=== PATIENT | male | born 1935 | race Caucasian/White ===

== ENCOUNTER → 2016-06-26 | Outpatient (REF) | payer MEDICARE ==
[2016-06-26 12:20] LABS: MEAN CORPUSCULAR HEMOGLOBIN 30.5 pg (27.0-33.0); MEAN CORPUSCULAR HGB CONC 33.5 g/dl (32.0-36.5); MEAN CORPUSCULAR VOLUME 90.8 fl (80.0-96.0); RED CELL DISTRIBUTION WIDTH 13.2 % (11.5-14.5); WHITE BLOOD COUNT 4.1 K/mm3 (4.0-10.0)
[2016-06-26 12:35] LABS: ALBUMIN 3.7 GM/DL (3.2-5.2); ALBUMIN/GLOBULIN RATIO 1.23 (1.00-1.93); ALKALINE PHOSPHATASE 54 U/L (45-117); ALT/SGPT 28 U/L (12-78); ANION GAP 8 MEQ/L (8-16); AST/SGOT 25 U/L (15-37); BILIRUBIN,TOTAL 0.6 MG/DL (0.2-1.0); BLOOD UREA NITROGEN 16 MG/DL (7-18); CARBON DIOXIDE LEVEL 31 MEQ/L (21-32); CHLORIDE LEVEL 104 MEQ/L (98-107); CHOLESTEROL LEVEL 134 MG/DL (<200); CREATININE FOR GFR 0.88 MG/DL (0.70-1.30); GLOMERULAR FILTRATION RATE > 60.0 (>42); GLUCOSE, FASTING 95 MG/DL (83-110); POTASSIUM SERUM 4.5 MEQ/L (3.5-5.1); SODIUM LEVEL 143 MEQ/L (136-145); TOTAL PROTEIN 6.7 GM/DL (6.4-8.2); TRIGLYCERIDES LEVEL 107 MG/DL (<150)
== END ==
LOC: M SFHCPLAZ 07:40
PROVIDERS: ATTEND Internal Medicine
DX: D69.6 Thrombocytopenia, unspecified (principal); I10 Essential (primary) hypertension; E11.9 Type 2 diabetes mellitus without complications; E78.00 Pure hypercholesterolemia, unspecified

== ENCOUNTER → 2016-09-27 | Outpatient (CLI) | payer MEDICARE ==
[~2016-09-27] MED LIST: AMLO5TAB2 PO; ASPI1TAB24 PO; FISH1000 PO; GLUC1CAP10 PO; LISI20TA PO; METO50TA2 PO; MULT1TAB10 PO; SIMV20TA2 PO
[2016-09-27 10:40] LABS: MEAN CORPUSCULAR HEMOGLOBIN 30.3 pg (27.0-33.0); MEAN CORPUSCULAR HGB CONC 33.9 g/dl (32.0-36.5); MEAN CORPUSCULAR VOLUME 89.3 fl (80.0-96.0); RED CELL DISTRIBUTION WIDTH 13.8 % (11.5-14.5); WHITE BLOOD COUNT 7.1 K/mm3 (4.0-10.0)
[2016-09-27 10:47] LABS: INR 1.03
[2016-09-27 11:02] LABS: ALBUMIN 4.1 GM/DL (3.2-5.2); ALBUMIN/GLOBULIN RATIO 1.21 (1.00-1.93); ALKALINE PHOSPHATASE 53 U/L (45-117); ALT/SGPT 29 U/L (12-78); ANION GAP 3 MEQ/L (8-16); AST/SGOT 25 U/L (15-37); BILIRUBIN,TOTAL 0.7 MG/DL (0.2-1.0); BLOOD UREA NITROGEN 22 MG/DL (7-18); CALCIUM LEVEL 9.4 MG/DL (8.8-10.2); CARBON DIOXIDE LEVEL 35 MEQ/L (21-32); CHLORIDE LEVEL 100 MEQ/L (98-107); CREATININE FOR GFR 0.86 MG/DL (0.70-1.30); GLOMERULAR FILTRATION RATE > 60.0 (>42); GLUCOSE, FASTING 87 MG/DL (83-110); POTASSIUM SERUM 4.3 MEQ/L (3.5-5.1); SODIUM LEVEL 138 MEQ/L (136-145); TOTAL PROTEIN 7.5 GM/DL (6.4-8.2)
--- NOTE | 2016-09-27 15:01 | REP ---
Chest x-ray: Two views. History: Fever and cough. Comparison study: August 03, 2001. Findings: The lungs are symmetrically aerated and free of infiltrate. The pleural angles are sharp. Heart is not felt to be enlarged. The aorta is calcific and tortuous. There are old displaced rib fractures along the left lateral chest wall unchanged from the 2001 prior study. There are some degenerative changes in the thoracic spine. No other significant bony abnormality is seen. Impression: No active disease. Signed by Lee Sher MD 09/27/2016 03:13 P
--- NOTE | 2016-09-28 12:53 | ECGEPIP ---
Stationary ECG Study [facility] Test Date: 2016-09-27 Pat Name: NORMA LINTON Department: Room: - Gender: M Athletics Teacher: TESHA : 1935 Requested By: Mike Kang Order Number: [id number] Reading MD: Jayro Capellan Measurements Intervals [place] Rate: 50 P: 34 [place]: 146 QRS: -5 QRSD: 79 T: 15 QT: 438 QTc: 401 Interpretive Statements SINUS BRADYCARDIA No prior ECG available for comparison at the time of interpretation. Electronically Signed On 09-28-2016 12:53:07 EDT by Jayro Capellan
== END ==
LOC: M ADMPAT 08:51
PROVIDERS: ATTEND Orthopaedic Surgery
DX: Z01.818 Encounter for other preprocedural examination (principal); M25.561 Pain in right knee; I10 Essential (primary) hypertension; Z79.899 Other long term (current) drug therapy

== ENCOUNTER 2016-10-11 05:37 | Inpatient (IN) | payer MEDICARE ==
[2016-09-27 09:25] VITALS: BP 134/68
--- NOTE | 2016-10-07 18:08 | HPE ---
DATE OF ADMISSION: 10/11/2016 CHIEF COMPLAINT: Right knee pain. HISTORY OF PRESENT ILLNESS: This is a pleasant 80-year-old male with progressively worsening right knee pain and stiffness. He has failed to improve with conservative treatment. He has elected for surgery for his continued symptoms. He has pain with weightbearing activities and his activities of daily living. X-rays of his knee are notable for advanced osteoarthritis of the right knee joint. He has consented for a right total knee arthroplasty by Dr. Mike Kang. Medical optimization was performed by Dr. Bellamy. ALLERGIES: None. CURRENT MEDICATIONS: - amlodipine 10 mg half a tablet every day - aspirin 81 mg once a day - Burp-Less fish oil tablets 1200 mg two by mouth every day - glucosamine and chondroitin collagen 250/200/116.67 mg - lisinopril/hydrochlorothiazide (HCTZ) 20/12.5 mg once a day - Claritin 10 mg a day - metoprolol succinate ER 50 mg two by mouth every day - multivitamin for a 50+ adults once a day - simvastatin 20 mg one at bedtime PAST MEDICAL HISTORY: Includes: 1. Hypertension. 2. High cholesterol. SOCIAL HISTORY: This gentleman is retired. He does not smoke. Occasionally drinks alcohol. FAMILY HISTORY: Noncontributory. REVIEW OF SYSTEMS: This patient denies chest pain, heart palpitations, cough, wheezing, difficulty breathing and shortness of breath. He denies abdominal pain, nausea, vomiting, diarrhea or constipation. He denies recent upper respiratory infection or urinary tract infection symptoms. He does complain of persistent pain in his right knee and pain with weightbearing activities in his right knee. PHYSICAL EXAMINATION: GENERAL: He is a well-nourished, well-developed, in no acute distress, adult male patient. He walks with a moderate limp favoring his right lower extremity. He is not using assistive devices. VITAL SIGNS: He is 68-1/2 inches tall, weighs 222 pounds with a temperature of 96.9, blood pressure 116/70, pulse of 60 and respirations of 18. NECK: Supple without adenopathy or jugular venous distension. There were no carotid bruits appreciated upon auscultation. LUNGS: Clear to auscultation without rales or wheeze throughout. HEART: Regular rate and rhythm. ABDOMEN: Bowel sounds were present. EXTREMITIES: Examination of the knee revealed intact skin. He had decreased range of motion secondary to pain and stiffness. The leg is neurovascularly intact. LABORATORY DATA: Chest x-ray showed no acute cardiopulmonary disease processes. EKG showed sinus bradycardia at 50 beats per minute. Nasal and sinus culture showed normal naida. ProTime was 13.6. INR 1.03. Glucose 87, BUN 22, creatinine 0.86, sodium 138, potassium 4.3. Complete blood count (CBC) showed a hematocrit of 41.9, otherwise within normal limits. Sedimentation rate was 6. Urinalysis (UA) was within normal limits with a specific gravity of 1.021. Urine culture showed no growth. IMPRESSION: Symptomatic osteoarthritis of the right knee joint. PLAN Consented for a right total knee arthroplasty by Dr. Mike Kang.
[~2016-10-11] VITALS: Ht 177.8 cm; Wt 98.0 kg
[2016-10-11] VITALS (7 sets, daily range): BP systolic 130–168; BP diastolic 67–77
[2016-10-11] MEDS ORDERED: LR 1,000 ML IV SCH ×2 (05:45→09:45)
[2016-10-11] MEDS ORDERED: fentaNYL 100 MCG/2 ML INJECTION (J3010) As Ordered ONE ×3 (06:42→08:02)
[2016-10-11] MEDS ORDERED: MIDAZOLAM INJ 2 MG/2 ML VIAL (J2250) As Ordered ONE ×2 (06:42→07:49)
[2016-10-11] MEDS ORDERED: TRANEXAMIC ACID 100 MG/ML 10ML VIAL As Ordered ONE (07:01)
[2016-10-11] MEDS ORDERED: ceFAZolin 1GM INJ (J0690) As Ordered ONE (07:02)
[2016-10-11] MEDS ORDERED: EPINEPHrine INJ 1 MG/ML 1ML VIAL/AMP As Ordered ONE (07:02)
[2016-10-11] MEDS ORDERED: BUPIVACAINE HCL 0.25% 30 ML VIAL As Ordered ONE (07:02)
[2016-10-11] MEDS ORDERED: LIDOCAINE 2% INJ 100 MG/5 ML SDV (FOR ANES.) As Ordered ONE (07:49)
[2016-10-11] MEDS ORDERED: PROPOFOL 200 MG/20 ML VIAL As Ordered ONE (07:49)
[2016-10-11] MEDS: fentaNYL 100 MCG/2 ML INJECTION (J3010) IV SCH ×2 (08:08→08:12)
[2016-10-11] MEDS: MIDAZOLAM INJ 2 MG/2 ML VIAL (J2250) IV SCH ×2 (08:11→08:12)
[2016-10-11] MEDS: ASPIRIN 81 MG ENTERIC TAB PO SCH (09:00)
[2016-10-11] MEDS: amLODIPine 5 MG TAB PO SCH (09:00)
[2016-10-11] MEDS: MULTIVITAMINS/MINERALS THERAP 1 TAB PO SCH (09:00)
[2016-10-11] MEDS: OMEGA-3 1050MG CAPSULE PO SCH (09:00)
[2016-10-11] MEDS ORDERED: MORPHINE PCA 1MG/ML 100ML CADD As Ordered ONE (09:41)
[2016-10-11] MEDS ORDERED: fentaNYL 100 MCG/2 ML INJECTION (J3010) IV PRN (09:45)
[2016-10-11] MEDS ORDERED: MORPHINE 2 MG/ML 1ML SYRINGE IV PRN (09:45)
[2016-10-11] MEDS ORDERED: ONDANSETRON 4MG/2ML VIAL (J2405) IV PRN ×3 (09:45→10:00)
[2016-10-11] MEDS ORDERED: EPIDURAL/PCA KEYS XX PRN (10:00)
[2016-10-11] MEDS ORDERED: FLEET ENEMA PR PRN (10:00)
[2016-10-11] MEDS ORDERED: diphenhydrAMINE INJ 50MG/ML VIAL (J1200) IV PRN (10:00)
[2016-10-11] MEDS ORDERED: PATIENT IS CURRENTLY ON AN ON-Q PAIN BUSTER PAIN RELIEF SYSTEM XX SCH (10:00)
[2016-10-11] MEDS ORDERED: ACETAMINOPHEN TAB 650MG DOSE (2X325MG) PO PRN (10:00)
[2016-10-11] MEDS ORDERED: NALOXONE INJ 0.4 MG/1 ML VIAL (J2310) IV PRN (10:00)
[2016-10-11] MEDS ORDERED: NALBUPHINE HCL 10 MG/ML AMP (J2300) IV PRN (10:00)
[2016-10-11] MEDS ORDERED: MORPHINE PCA 1MG/ML 100ML CADD IV PRN (10:00)
[2016-10-11] MEDS: LR 1,000 ML IV SCH ×2 (10:00→23:20)
--- NOTE | 2016-10-11 13:49 | RO ---
DATE OF PROCEDURE: 10/11/2016 PREOPERATIVE DIAGNOSIS: Right knee osteoarthritis. POSTOPERATIVE DIAGNOSIS: Right knee osteoarthritis. PROCEDURE: Right total knee arthroplasty using a PFC rotating platform cruciate retaining size 4 femur, size 4 tibia, 10 polyethylene and 35 patellar button. SURGEON: Mike Kang MD STRATEGIC COMMUNICATIONS MANAGER: DELORES Ann ANESTHESIA: Spinal. ESTIMATED BLOOD LOSS: Less than 50. COMPLICATIONS: None. INDICATIONS: 81-year-old gentleman who has had gradually worsening knee pain that has been refractory to conservative management arthroscopic treatment, etc. He wished to her surgical treatment and knee replacement. He understood the nature of this. The risks of bleeding, infection, damage to nerves, vessels, persistent pain, wear loosening, blood clots, medical problems, among others. Preop medical clearance was obtained. DESCRIPTION OF PROCEDURE: The patient taken to the operating room and placed in supine position after spinal anesthesia was induced. The right lower extremity was prepped and draped in usual sterile fashion. Time-out was performed. I then created a longitudinal incision over the anterior aspect the knee after a tourniquet was inflated. Sharp dissection was carried down through subcutaneous tissue. I performed a medial parapatellar arthrotomy per routine, everted the patella, removed some of the fat pad and flexed the knee. Removed any obvious large osteophytes at this point. We used a canal initiating reamer on the femoral side and put the intramedullary guide set at 7 degrees of valgus and 10 degrees cut because he was in slight valgus and I felt this would aid in tissue balancing. This was pinned in place by the insurance claims assistant. I did actually move the block back 2 more mm because of his flexion contracture, and the insurance claims assistant made the distal femoral cut. I protected soft tissues at all times. I then sized the femur to be a 4. The drill holes were made in the end of the femur and the 4-in-1 cutting block was placed. I then secured this in place and made the remaining four cuts and then prepared the tibia. It looked like to the PCL was still healthy. I ended up taking 8 mm off the lateral side, which seemed to be an appropriate size cut. The medial and lateral sides were relatively close in terms of their height. This was pinned in place. I made the remaining cut and removed excess bone, used the stone chimney mason removed soft tissue from either side of the knee and some osteophytes in posterior aspect the femur. We then prepared the tibia size 4 tray fit nicely. This was pinned in place. I drilled and broached and then the trial components were placed. Prior to that, I used the spacer blocks and the size 10 spacer block in flexion/extension appeared to be excellent with excellent stability and alignment. The trial components fit very nicely and excellent extension, excellent alignment, and excellent stability in flexion/extension with a size 10 polyethylene. I then freehand cut the patella removing about 7 or 8 mm of bone and sized this to be a 35. Drill holes were placed. I placed the button and put the knee through range of motion. Initially I noticed a little bit of clicking of the patella on the trial femoral component in the notch area but the trial component is quite a bit thicker in that area and it was my anticipation that it was just catching on this rough edge that the actual component did not have. The drill holes were placed in the end the femur. The insurance claims assistant prepared the bone cement. I removed the trial components, irrigated the bony surfaces and dried them carefully. Cemented on the tibial tray and impacted it in place, placed the polyethylene and then cemented on the femoral component, impacted it in place, removed excess bone cement, cemented on the patella, held it in place with a clamp, removed excess bone cement, irrigated copiously placed the TXA solution. Once the cement had hardened, I removed the patellar clamp. I closed the deep layer with interrupted #1 Vicryl sutures spaced out and then we used the Stratafix suture starting at the midpoint of the patella and we worked in each direction closing in layers, the deep layer with a Stratafix. Excellent watertight closure was made. I put the knee through range of motion. The patella no longer clicked or caught on the femoral component. It was a smooth range of motion with a stable knee. Once the deep layer was closed , we irrigated, closed subcutaneous with #2-0 Vicryl and skin with jessica. I placed the PainBuster catheter through the superolateral aspect the knee into the joint and fed this in and primed it with 10 mL of Marcaine. Sterile dressing was applied. Tourniquet had been deflated and he was taken to recovery room in stable condition. There were no known complications. The insurance claims assistant was instrumental in holding retractors and making the distal femoral cut and mixing the bone cement and assisting in closure. The plan should be routine postop anticipated. MTDD
[2016-10-11] MEDS ORDERED: ceFAZolin SOD 1 GM in D5W MINI-BAG PLUS 50 ML IV SCH (16:00)
[2016-10-11] MEDS ORDERED: WARFARIN SOD 5 MG TAB PO SCH (17:00)
[2016-10-11] MEDS: SIMVASTATIN 20 MG TAB PO SCH (18:36)
[2016-10-11] MEDS: METOPROLOL TART 50 MG TAB PO SCH (21:30)
[2016-10-12 02:00] VITALS: BP 126/72
[2016-10-12 06:00] VITALS: BP 132/66
[2016-10-12 06:44] LABS: INR 1.2
[2016-10-12 06:45] LABS: MEAN CORPUSCULAR HEMOGLOBIN 30.5 pg (27.0-33.0); MEAN CORPUSCULAR HGB CONC 33.9 g/dl (32.0-36.5); RED CELL DISTRIBUTION WIDTH 13.5 % (11.5-14.5); WHITE BLOOD COUNT 11.3 K/mm3 (4.0-10.0)
[2016-10-12 06:50] LABS: ALBUMIN 3.2 GM/DL (3.2-5.2); ALKALINE PHOSPHATASE 38 U/L (45-117); ALT/SGPT 18 U/L (12-78); ANION GAP 8 MEQ/L (8-16); AST/SGOT 17 U/L (15-37); BILIRUBIN,TOTAL 0.3 MG/DL (0.2-1.0); BLOOD UREA NITROGEN 21 MG/DL (7-18); CALCIUM LEVEL 8.3 MG/DL (8.8-10.2); CARBON DIOXIDE LEVEL 29 MEQ/L (21-32); CHLORIDE LEVEL 99 MEQ/L (98-107); CREATININE FOR GFR 0.85 MG/DL (0.70-1.30); GLOMERULAR FILTRATION RATE > 60.0 (>42); GLUCOSE, FASTING 141 MG/DL (83-110); MAGNESIUM LEVEL 1.9 MG/DL (1.8-2.4); POTASSIUM SERUM 3.9 MEQ/L (3.5-5.1); SODIUM LEVEL 136 MEQ/L (136-145); TOTAL PROTEIN 6.4 GM/DL (6.4-8.2)
[2016-10-12] MEDS ORDERED: PERCOCET 5MG/325MG TAB PO PRN (07:00)
--- NOTE | 2016-10-12 08:12 | IPNPDOC ---
Subjective Date Seen The patient was seen on 10/12/16. Subjective Chief Complaint/HPI The patient is a 80-year-old male admitted with a reason for visit of Arthritis Right Knee. Events since last encounter pt seen and examined , doing well, pain is controlled, no overnight events, tolerated diet Objective Physical Examination General Exam: Positive: Alert, No Acute Distress Neck Exam: Positive: Supple, Negative: JVD, thyromegaly Chest Exam: Positive: Clear to auscultation, Normal air movement Heart Exam: Positive: Rate Normal, Murmurs Abdomen Exam: Positive: Normal bowel sounds, Soft, Negative: Tenderness, Hepatospenomegaly Extremity Exam: Positive: Normal pulses, Negative: Clubbing, Cyanosis, Edema Assessment /Plan Problems (1) Knee osteomyelits, right Status: Acute Problem Text: * s/p right knee arthroplasty POD #1 * pain in controlled, continue coumadin * activity/diet/pain per surgery * no overnight events (2) HTN (hypertension) Status: Chronic Response to Treatment: Stable Problem Text: * continue all his home medication * metoprolol, Norvasc, lisinopril, hctz (3) HLD (hyperlipidemia) Status: Chronic Response to Treatment: Stable Problem Text: continue statin Plan/VTE VTE Prophylaxis Ordered?: Yes VS, I&O, 24H, Fishbone Vital Signs/I&O Vital Signs Date Time Temp Pulse Resp B/P (MAP) Pulse Ox O2 Delivery O2 Flow Rate FiO2 10/12/16 06:00 99.2 55 18 132/66 (88) 98 Nasal Cannula 2.0 I&O- Last 24 Hours up to 6 AM 10/12/16 06:00 Intake Total 2480 ml Output Total 850 ml Balance 1630 ml Laboratory Data 24H LABS Laboratory Tests 2 10/12/16 06:22: Prothrombin Time 15.3H, Prothromb Time International Ratio 1.20, Anion Gap 8, Glomerular Filtration Rate > 60.0, Blood Urea Nitrogen 21H, Creatinine 0.85, Sodium Level 136, Potassium Level 3.9, Chloride Level 99, Carbon Dioxide Level 29, Calcium Level 8.3L, Aspartate Amino Transf (AST/SGOT) 17, Alanine Aminotransferase (ALT/SGPT) 18, Alkaline Phosphatase 38L, Total Bilirubin 0.3, Total Protein 6.4, Albumin 3.2, Magnesium Level 1.9, Albumin/Globulin Ratio 1.00 CBC/BMP Laboratory Tests 10/12/16 06:22 Red Blood Count 4.15 L, Mean Corpuscular Volume 90.0, Mean Corpuscular Hemoglobin 30.5, Mean Corpuscular Hemoglobin Concent 33.9, Red Cell Distribution Width 13.5, Calcium Level 8.3 L, Aspartate Amino Transf (AST/SGOT) 17, Alanine Aminotransferase (ALT/SGPT) 18, Alkaline Phosphatase 38 L, Total Bilirubin 0.3, Total Protein 6.4, Albumin 3.2 IRIS GIVENS DO Oct 12, 2016 08:12
[2016-10-12] MEDS: MOM 30ML SUSPENSION UDC PO SCH (08:21)
[2016-10-12] MEDS: MIRALAX *UNIT DOSE* 17GM PACKET PO SCH (08:21)
[2016-10-12] MEDS: LISINOPRIL 20 MG TAB PO SCH (08:21)
[2016-10-12] MEDS: hydroCHLOROthiazide 12.5 MG CAPSULE PO SCH (08:21)
[2016-10-12] MEDS: MULTIVITAMINS/MINERALS THERAP 1 TAB PO SCH (08:22)
[2016-10-12] MEDS: OMEGA-3 1050MG CAPSULE PO SCH (08:22)
[2016-10-12] MEDS: ASPIRIN 81 MG ENTERIC TAB PO SCH (08:22)
[2016-10-12] MEDS: SENOKOT S TAB PO SCH ×2 (08:22→21:58)
[2016-10-12] MEDS: amLODIPine 5 MG TAB PO SCH (08:22)
[2016-10-12] MEDS: PERCOCET 5MG/325MG TAB PO PRN ×4 (08:22→21:57)
[2016-10-12] MEDS: METOPROLOL TART 50 MG TAB PO SCH ×2 (08:23→21:58)
[2016-10-12 10:00] VITALS: BP 138/72
[2016-10-12 14:00] VITALS: BP 130/57
--- NOTE | 2016-10-12 15:05 | CR ---
DATE OF CONSULTATION: 10/11/2016 CONSULTING PHYSICIAN: Dr. Mike Kang PRIMARY CARE PROVIDER: Dr. Augusto Bellamy REASON FOR CONSULTATION: Medical management. HISTORY OF PRESENT ILLNESS: The patient is 80-year-old male with a past medical history significant for hypertension, hyperlipidemia, knee arthritis, presented to the hospital for an elective right knee surgery with Dr. Kang. He was cleared preoperatively by Dr. Bellamy. He tolerated the procedure well. He was seen postoperatively for medical management. REVIEW OF SYSTEMS: 2-point review of systems was obtained all which was negative. ALLERGIES: None. CURRENT MEDICATIONS: Include: - amlodipine 10 mg 1/2 tablet by mouth daily - aspirin 81 mg daily - glucosamine daily - lisinopril HCTZ 20-12.5 mg by mouth daily - Claritin 10 mg by mouth daily - metoprolol 50 mg two by mouth daily - multivitamin once daily - simvastatin 20 mg at bedtime PAST MEDICAL HISTORY: Significant for hypertension, hyperlipidemia. SOCIAL HISTORY: The patient denies any tobacco. Drinks occasionally. Retired gentleman FAMILY HISTORY: Noncontributory. PHYSICAL FINDINGS: Vital signs: Postoperatively, temperature 97.1, pulse 60, respiratory rate 13, blood pressure is 144/70, pulse oximetry 96% on 2 liters nasal cannula. HEENT: Pupils equal, round, reactive to light and accommodation. Neck: Supple. No jugular venous distention (JVD). Lungs: Clear to auscultation bilaterally. Abdomen: Soft, nontender, nondistended. Extremities: Right knee dressing intact. No clubbing, cyanosis or edema over the other leg. Skin: No obvious new lesions or rashes. Laboratory findings preoperatively were reviewed. ASSESSMENT AND PLAN: 1. Right knee osteoarthritis, status post right total knee arthroplasty done by Dr. Kang on 10/11/2016. The patient tolerated the procedure well. Pain control, physical therapy and anticoagulation per orthopedics. The patient appears to be in no acute distress. 2. History of hypertension. We will resume the patient's amlodipine and metoprolol today. We will restart lisinopril and HCTZ in the morning after reviewing blood work. 3. Hyperlipidemia. Will resume the patient's simvastatin 20 mg by mouth daily today. 4. Deep vein thrombosis (DVT) prophylaxis. The patient is currently on Coumadin, received 5 mg by mouth daily.
--- NOTE | 2016-10-12 15:09 | REP ---
RIGHT KNEE, TWO VIEWS: HISTORY: Postoperative. The patient is status post right total knee replacement. There is no acute fracture or dislocation. Subcutaneous air and surgical jessica are present in the overlying soft tissue. IMPRESSION: The patient is status post right total knee replacement. There is anatomic alignment. Signed by Brendan Padilla MD 10/12/2016 01:14 P
[2016-10-12] MEDS ORDERED: WARFARIN SOD 5 MG TAB PO ONE (17:00)
[2016-10-12] MEDS: SIMVASTATIN 20 MG TAB PO SCH (17:43)
[2016-10-12 22:00] VITALS: BP 135/73
[2016-10-13] MEDS: PERCOCET 5MG/325MG TAB PO PRN ×2 (03:37→10:10)
[2016-10-13 06:00] VITALS: BP 163/75
[2016-10-13 06:53] LABS: MEAN CORPUSCULAR HEMOGLOBIN 30.3 pg (27.0-33.0); MEAN CORPUSCULAR HGB CONC 33.1 g/dl (32.0-36.5); MEAN CORPUSCULAR VOLUME 91.7 fl (80.0-96.0); RED CELL DISTRIBUTION WIDTH 13.9 % (11.5-14.5); WHITE BLOOD COUNT 8.9 K/mm3 (4.0-10.0)
[2016-10-13 06:57] LABS: INR 2.25
[2016-10-13 07:09] LABS: ALBUMIN 3.2 GM/DL (3.2-5.2); ALBUMIN/GLOBULIN RATIO 0.97 (1.00-1.93); ALKALINE PHOSPHATASE 38 U/L (45-117); ALT/SGPT 17 U/L (12-78); ANION GAP 4 MEQ/L (8-16); AST/SGOT 16 U/L (15-37); BILIRUBIN,TOTAL 0.5 MG/DL (0.2-1.0); BLOOD UREA NITROGEN 23 MG/DL (7-18); CALCIUM LEVEL 8.1 MG/DL (8.8-10.2); CARBON DIOXIDE LEVEL 33 MEQ/L (21-32); CHLORIDE LEVEL 100 MEQ/L (98-107); CREATININE FOR GFR 0.88 MG/DL (0.70-1.30); GLOMERULAR FILTRATION RATE > 60.0 (>42); GLUCOSE, FASTING 115 MG/DL (83-110); MAGNESIUM LEVEL 2.1 MG/DL (1.8-2.4); POTASSIUM SERUM 3.9 MEQ/L (3.5-5.1); SODIUM LEVEL 137 MEQ/L (136-145); TOTAL PROTEIN 6.5 GM/DL (6.4-8.2)
--- NOTE | 2016-10-13 07:49 | IPNPDOC ---
Subjective Date Seen The patient was seen on 10/13/16. Subjective Chief Complaint/HPI The patient is a 80-year-old male admitted with a reason for visit of Arthritis Right Knee. Constitutional: Denies: Chills, Fever, Night Sweats Pulmonary: Denies: Dyspnea, Cough Cardiovascular: Denies: Chest Pain, Palpitations, Orthopnea, Paroxysmal Noc. Dyspnea, Lt Headedness Objective Physical Examination General Exam: Positive: Alert, No Acute Distress Neck Exam: Positive: Supple, Negative: JVD, thyromegaly Chest Exam: Positive: Clear to auscultation, Normal air movement Heart Exam: Positive: Rate Normal, Murmurs Abdomen Exam: Positive: Normal bowel sounds, Soft, Negative: Tenderness, Hepatospenomegaly Extremity Exam: Positive: Normal pulses, Negative: Clubbing, Cyanosis, Edema Assessment /Plan Problems (1) Knee osteomyelits, right Status: Acute Problem Text: * s/p right knee arthroplasty POD #2 * pain in controlled, continue coumadin, INR now 2.25 * activity/diet/pain per surgery * no overnight events (2) HTN (hypertension) Status: Chronic Response to Treatment: Stable Problem Text: * continue all his home medication * metoprolol, Norvasc, lisinopril, hctz (3) HLD (hyperlipidemia) Status: Chronic Response to Treatment: Stable Problem Text: continue statin Plan/VTE VTE Prophylaxis Ordered?: Yes VS, I&O, 24H, Fishbone Vital Signs/I&O Vital Signs Date Time Temp Pulse Resp B/P (MAP) Pulse Ox O2 Delivery O2 Flow Rate FiO2 10/13/16 06:00 97.8 57 20 163/75 (104) 96 Room Air 10/12/16 06:00 2.0 I&O- Last 24 Hours up to 6 AM 10/13/16 06:00 Intake Total 1740 ml Output Total 275 ml Balance 1465 ml Laboratory Data 24H LABS Laboratory Tests 2 10/13/16 06:35: Prothrombin Time 24.9H, Prothromb Time International Ratio 2.25, Anion Gap 4L, Glomerular Filtration Rate > 60.0, Blood Urea Nitrogen 23H, Creatinine 0.88, Sodium Level 137, Potassium Level 3.9, Chloride Level 100, Carbon Dioxide Level 33H, Calcium Level 8.1L, Aspartate Amino Transf (AST/SGOT) 16, Alanine Aminotransferase (ALT/SGPT) 17, Alkaline Phosphatase 38L, Total Bilirubin 0.5#, Total Protein 6.5, Albumin 3.2, Magnesium Level 2.1, Albumin/Globulin Ratio 0.97L CBC/BMP Laboratory Tests 10/13/16 06:35 Red Blood Count 3.85 L, Mean Corpuscular Volume 91.7, Mean Corpuscular Hemoglobin 30.3, Mean Corpuscular Hemoglobin Concent 33.1, Red Cell Distribution Width 13.9, Calcium Level 8.1 L, Aspartate Amino Transf (AST/SGOT) 16, Alanine Aminotransferase (ALT/SGPT) 17, Alkaline Phosphatase 38 L, Total Bilirubin 0.5 #, Total Protein 6.5, Albumin 3.2 IRIS GIVENS DO Oct 13, 2016 07:49
[2016-10-13] MEDS ORDERED: PERC5TAB6 PO (08:46)
[2016-10-13] MEDS ORDERED: COUM2.5T11 PO (08:46)
[2016-10-13] MEDS: MULTIVITAMINS/MINERALS THERAP 1 TAB PO SCH (08:59)
[2016-10-13] MEDS: amLODIPine 5 MG TAB PO SCH (08:59)
[2016-10-13] MEDS: METOPROLOL TART 50 MG TAB PO SCH (09:00)
[2016-10-13] MEDS: MOM 30ML SUSPENSION UDC PO SCH (09:00)
[2016-10-13] MEDS: MIRALAX *UNIT DOSE* 17GM PACKET PO SCH (09:00)
[2016-10-13] MEDS: hydroCHLOROthiazide 12.5 MG CAPSULE PO SCH (09:00)
[2016-10-13 09:01] VITALS: BP 126/59
[2016-10-13] MEDS: LISINOPRIL 20 MG TAB PO SCH (09:01)
[2016-10-13] MEDS: SENOKOT S TAB PO SCH (09:01)
[2016-10-13] MEDS: ASPIRIN 81 MG ENTERIC TAB PO SCH (09:02)
[2016-10-13] MEDS: OMEGA-3 1050MG CAPSULE PO SCH (10:09)
== END 2016-10-13 11:50 | disposition home health service (06) | DRG 470 ==
LOC: M OR 05:37 → M MS5PR 11:20
PROVIDERS: ADMIT Orthopaedic Surgery; ATTEND Orthopaedic Surgery
PROC: 0SRC0J9 Replacement of Right Knee Joint with Synthetic Substitute, Cemented, Open Approach (ICD-10-PCS; principal; 2016-10-11 07:30)
DX: M17.11 Unilateral primary osteoarthritis, right knee (principal); I10 Essential (primary) hypertension; E78.00 Pure hypercholesterolemia, unspecified; E78.5 Hyperlipidemia, unspecified; R26.89 Other abnormalities of gait and mobility; Z79.82 Long term (current) use of aspirin; Z79.899 Other long term (current) drug therapy; Z86.39 Personal history of other endocrine, nutritional and metabolic disease

== ENCOUNTER → 2016-10-15 | Outpatient (REF) | payer MEDICARE ==
[~2016-10-15] MED LIST changes: +COUM2.5T11 PO; +PERC5TAB6 PO
[2016-10-15 15:35] LABS: INR 1.6
== END ==
LOC: M SHH 15:17
PROVIDERS: ATTEND Nurse Practitioner Family
DX: Z79.01 Long term (current) use of anticoagulants (principal)

== ENCOUNTER → 2016-10-17 | Outpatient (REF) | payer MEDICARE ==
[2016-10-17 14:14] LABS: INR 1.79
== END ==
LOC: M LAB REF 12:55
PROVIDERS: ATTEND Nurse Practitioner Family
DX: Z79.01 Long term (current) use of anticoagulants (principal)

== ENCOUNTER → 2016-10-21 | Outpatient (REF) | payer MEDICARE ==
[2016-10-21 12:20] LABS: INR 1.88
== END ==
LOC: M LAB REF 11:32
PROVIDERS: ATTEND Nurse Practitioner Family
DX: Z79.01 Long term (current) use of anticoagulants (principal)

== ENCOUNTER → 2016-10-24 | Outpatient (REF) | payer MEDICARE ==
[2016-10-24 18:08] LABS: INR 1.69
== END ==
LOC: M LABDRAW1 16:57
PROVIDERS: ATTEND Orthopaedic Surgery
DX: Z51.81 Encounter for therapeutic drug level monitoring (principal); Z79.01 Long term (current) use of anticoagulants

== ENCOUNTER → 2016-10-28 | Outpatient (REF) | payer MEDICARE ==
[2016-10-28 12:21] LABS: INR 2.02
== END ==
LOC: M LABDRAW1 11:30
PROVIDERS: ATTEND Orthopaedic Surgery
DX: Z47.89 Encounter for other orthopedic aftercare (principal); M17.11 Unilateral primary osteoarthritis, right knee; Z79.01 Long term (current) use of anticoagulants

== ENCOUNTER → 2016-10-31 | Outpatient (REF) | payer MEDICARE ==
[2016-10-31 15:40] LABS: INR 2.06
== END ==
LOC: M LABDRAW1 14:54
PROVIDERS: ATTEND Orthopaedic Surgery
DX: Z51.81 Encounter for therapeutic drug level monitoring (principal); M17.11 Unilateral primary osteoarthritis, right knee; Z47.89 Encounter for other orthopedic aftercare; Z79.01 Long term (current) use of anticoagulants

== ENCOUNTER → 2016-11-04 | Outpatient (REF) | payer MEDICARE ==
[2016-11-04 13:22] LABS: INR 2.29
== END ==
LOC: M LABDRAW1 12:41
PROVIDERS: ATTEND Orthopaedic Surgery
DX: M17.11 Unilateral primary osteoarthritis, right knee (principal); Z47.89 Encounter for other orthopedic aftercare; Z79.01 Long term (current) use of anticoagulants

== ENCOUNTER → 2016-11-07 | Outpatient (REF) | payer MEDICARE ==
[2016-11-07 12:32] LABS: INR 1.37
== END ==
LOC: M LABDRAW1 11:48
PROVIDERS: ATTEND Orthopaedic Surgery
DX: Z51.81 Encounter for therapeutic drug level monitoring (principal); Z79.01 Long term (current) use of anticoagulants; M17.11 Unilateral primary osteoarthritis, right knee; Z47.89 Encounter for other orthopedic aftercare

== ENCOUNTER → 2016-12-24 | Outpatient (REF) | payer MEDICARE ==
[~2016-12-24] MED LIST changes: +ASPI-161 PO; -ASPI1TAB24 PO; -COUM2.5T11 PO; +COUM2.5T17 PO; -METO50TA2 PO; +METO50TA7 PO; +PERC5TAB12 PO; -PERC5TAB6 PO
[2016-12-24 11:43] LABS: ALBUMIN 3.7 GM/DL (3.2-5.2); ALBUMIN/GLOBULIN RATIO 1.16 (1.00-1.93); ALKALINE PHOSPHATASE 53 U/L (45-117); ALT/SGPT 23 U/L (12-78); ANION GAP 7 MEQ/L (8-16); AST/SGOT 21 U/L (15-37); BILIRUBIN,TOTAL 0.5 MG/DL (0.2-1.0); BLOOD UREA NITROGEN 18 MG/DL (7-18); CALCIUM LEVEL 9.3 MG/DL (8.8-10.2); CARBON DIOXIDE LEVEL 32 MEQ/L (21-32); CHLORIDE LEVEL 99 MEQ/L (98-107); CREATININE FOR GFR 0.89 MG/DL (0.70-1.30); GLOMERULAR FILTRATION RATE > 60.0 (>42); GLUCOSE, FASTING 120 MG/DL (83-110); POTASSIUM SERUM 4.3 MEQ/L (3.5-5.1); SODIUM LEVEL 138 MEQ/L (136-145); TOTAL PROTEIN 6.9 GM/DL (6.4-8.2)
== END ==
LOC: M LABDRAW1 07:46
PROVIDERS: ATTEND Internal Medicine
DX: I10 Essential (primary) hypertension (principal)

== ENCOUNTER → 2017-08-25 | Outpatient (REF) | payer MEDICARE ==
[2017-08-25 13:02] LABS: HEMATOCRIT 41.8 % (42.0-52.0); HEMOGLOBIN 13.9 g/dl (14.0-18.0); MEAN CORPUSCULAR HEMOGLOBIN 30.8 pg (27.0-33.0); MEAN CORPUSCULAR HGB CONC 33.3 g/dl (32.0-36.5); MEAN CORPUSCULAR VOLUME 92.5 fl (80.0-96.0); PLATELET COUNT, AUTOMATED 161 10^3/uL (150-450); RED BLOOD COUNT 4.52 10^6/uL (4.30-6.10); RED CELL DISTRIBUTION WIDTH 13.2 % (11.5-14.5); WHITE BLOOD COUNT 5.2 10^3/uL (4.0-10.0)
[2017-08-25 13:35] LABS: ALBUMIN 3.9 GM/DL (3.2-5.2); ALBUMIN/GLOBULIN RATIO 1.22 (1.00-1.93); ALKALINE PHOSPHATASE 52 U/L (45-117); ALT/SGPT 26 U/L (12-78); ANION GAP 6 MEQ/L (8-16); AST/SGOT 21 U/L (7-37); BILIRUBIN,TOTAL 0.8 MG/DL (0.2-1.0); BLOOD UREA NITROGEN 20 MG/DL (7-18); CALCIUM LEVEL 8.9 MG/DL (8.8-10.2); CARBON DIOXIDE LEVEL 33 MEQ/L (21-32); CHLORIDE LEVEL 102 MEQ/L (98-107); CHOLESTEROL LEVEL 141 MG/DL (<200); CHOLESTEROL RISK RATIO 3.357 (<5); CREATININE FOR GFR 0.86 MG/DL (0.70-1.30); GLOMERULAR FILTRATION RATE > 60.0 (>42); GLUCOSE, FASTING 114 MG/DL (70-100); HDL CHOLESTEROL 42 MG/DL (>40); MAGNESIUM LEVEL 2.3 MG/DL (1.8-2.4); NON-HDL-C 99 MG/DL; POTASSIUM SERUM 4.5 MEQ/L (3.5-5.1); SODIUM LEVEL 141 MEQ/L (136-145); TOTAL PROTEIN 7.1 GM/DL (6.4-8.2); TRIGLYCERIDES LEVEL 115 MG/DL (<150)
== END ==
LOC: M LABDRAW1 08:17
DX: D69.6 Thrombocytopenia, unspecified (principal); I10 Essential (primary) hypertension; E78.00 Pure hypercholesterolemia, unspecified
CPT/HCPCS: 83735

== ENCOUNTER → 2017-12-22 | Outpatient (CLI) | payer MEDICARE ==
[2017-12-25 00:09] LABS: Lyme Disease IgG/IgM Antibodie <0.91 ISR (0.00-0.90); Lyme Disease IgM Ab Quantitati <0.80 index (0.00-0.79)
== END ==
LOC: M WUC 11:07
DX: Z11.2 Encounter for screening for other bacterial diseases (principal); W57.XXXD Bitten or stung by nonvenomous insect and other nonvenomous arthropods, subsequent encounter
CPT/HCPCS: 36415

== ENCOUNTER → 2018-03-31 | Outpatient (REF) | payer MEDICARE ==
[2018-03-31 12:20] LABS: ESTIMATED AVERAGE GLUCOSE 117 MG/DL (60-110); HEMOGLOBIN A1c 5.7 %
[2018-03-31 12:43] LABS: ALBUMIN 3.9 GM/DL (3.2-5.2); ALBUMIN/GLOBULIN RATIO 1.15 (1.00-1.93); ALKALINE PHOSPHATASE 50 U/L (45-117); ALT/SGPT 30 U/L (12-78); ANION GAP 8 MEQ/L (8-16); AST/SGOT 27 U/L (7-37); BILIRUBIN,TOTAL 0.7 MG/DL (0.2-1.0); BLOOD UREA NITROGEN 20 MG/DL (7-18); CALCIUM LEVEL 8.6 MG/DL (8.8-10.2); CARBON DIOXIDE LEVEL 31 MEQ/L (21-32); CHLORIDE LEVEL 102 MEQ/L (98-107); CREATININE FOR GFR 0.91 MG/DL (0.70-1.30); GLOMERULAR FILTRATION RATE > 60.0 (>35); GLUCOSE, FASTING 111 MG/DL (70-100); POTASSIUM SERUM 4.4 MEQ/L (3.5-5.1); SODIUM LEVEL 141 MEQ/L (136-145); TOTAL PROTEIN 7.3 GM/DL (6.4-8.2)
== END ==
LOC: M LABDRAW1 11:34
DX: I10 Essential (primary) hypertension (principal); Z86.39 Personal history of other endocrine, nutritional and metabolic disease
CPT/HCPCS: 80053

== ENCOUNTER → 2018-10-07 | Outpatient (REF) | payer MEDICARE ==
[~2018-10-07] MED LIST changes: -AMLO5TAB2 PO; +AMLO5TAB6 PO
[2018-10-07 13:13] LABS: HEMATOCRIT 41.9 % (42.0-52.0); HEMOGLOBIN 13.8 g/dl (13.5-17.5); MEAN CORPUSCULAR HEMOGLOBIN 30.7 pg (27.0-33.0); MEAN CORPUSCULAR HGB CONC 32.9 g/dl (32.0-36.5); MEAN CORPUSCULAR VOLUME 93.3 fl (80.0-96.0); PLATELET COUNT, AUTOMATED 168 10^3/uL (150-450); RED BLOOD COUNT 4.49 10^6/uL (4.30-6.10); WHITE BLOOD COUNT 4.7 10^3/uL (4.0-10.0)
[2018-10-07 14:04] LABS: ALBUMIN 3.7 GM/DL (3.2-5.2); ALT/SGPT 27 U/L (12-78); BILIRUBIN,TOTAL 0.8 MG/DL (0.2-1.0); BLOOD UREA NITROGEN 23 MG/DL (7-18); CALCIUM LEVEL 8.5 MG/DL (8.8-10.2); CARBON DIOXIDE LEVEL 31 MEQ/L (21-32); CHLORIDE LEVEL 101 MEQ/L (98-107); CHOLESTEROL LEVEL 159 MG/DL (<200); CHOLESTEROL RISK RATIO 3.785 (<5); CREATININE FOR GFR 0.89 MG/DL (0.70-1.30); GLOMERULAR FILTRATION RATE > 60.0 (>35); GLUCOSE, FASTING 104 MG/DL (70-100); HDL CHOLESTEROL 42 MG/DL (>40); LDL CHOLESTEROL 92 MG/DL (<100); MAGNESIUM LEVEL 2.2 MG/DL (1.8-2.4); NON-HDL-C 117 MG/DL; POTASSIUM SERUM 4.5 MEQ/L (3.5-5.1); SODIUM LEVEL 139 MEQ/L (136-145); TOTAL PROTEIN 7.2 GM/DL (6.4-8.2); TRIGLYCERIDES LEVEL 127 MG/DL (<150)
== END ==
LOC: M LABDRAW1 12:05
PROVIDERS: ATTEND Internal Medicine
DX: D69.6 Thrombocytopenia, unspecified (principal); I10 Essential (primary) hypertension; E78.00 Pure hypercholesterolemia, unspecified

== ENCOUNTER → 2019-04-20 | Outpatient (CLI) | payer OTHER ==
[~2019-04-20] MED LIST changes: -LISI20TA PO; +LISI20TA19 PO
[2019-04-20 07:01] LABS: ALBUMIN 3.9 GM/DL (3.2-5.2); ALT/SGPT 25 U/L (12-78); BILIRUBIN,TOTAL 0.8 MG/DL (0.2-1.0); BLOOD UREA NITROGEN 14 MG/DL (7-18); CALCIUM LEVEL 9.2 MG/DL (8.8-10.2); CARBON DIOXIDE LEVEL 33 MEQ/L (21-32); CHLORIDE LEVEL 103 MEQ/L (98-107); GLOMERULAR FILTRATION RATE > 60.0 (>35); GLUCOSE, FASTING 111 MG/DL (70-100); MAGNESIUM LEVEL 2.1 MG/DL (1.8-2.4); POTASSIUM SERUM 4.1 MEQ/L (3.5-5.1); SODIUM LEVEL 140 MEQ/L (136-145); TOTAL PROTEIN 7.5 GM/DL (6.4-8.2)
[2019-04-20 07:09] LABS: MALB URINE SIEMENS 42.5 MG/L
== END ==
LOC: M LAB 06:05
PROVIDERS: ATTEND Internal Medicine
DX: I10 Essential (primary) hypertension (principal); Z86.39 Personal history of other endocrine, nutritional and metabolic disease

== ENCOUNTER → 2019-04-24 | Outpatient (CLI) | payer OTHER ==
--- NOTE | 2019-04-24 16:41 | REP ---
Left middle finger four views: There is PIP and DIP osteoarthritis. The MCP articulation is unremarkable. Mineralization is normal. There is no fracture or dislocation. Impression: Osteoarthritis. Electronically Signed by Rell Ferris MD 04/24/2019 04:32 P
== END ==
LOC: M WUC 16:21
PROVIDERS: ATTEND Physician Assistant
DX: M19.042 Primary osteoarthritis, left hand (principal); M79.645 Pain in left finger(s)

== ENCOUNTER → 2019-10-18 | Outpatient (CLI) | payer OTHER ==
[~2019-10-18] MED LIST changes: -SIMV20TA2 PO; +SIMV20TA22 PO
[2019-10-18 06:51] LABS: HEMATOCRIT 38.1 % (42.0-52.0); HEMOGLOBIN 12.8 g/dl (13.5-17.5); MEAN CORPUSCULAR HEMOGLOBIN 30.7 pg (27.0-33.0); MEAN CORPUSCULAR HGB CONC 33.6 g/dl (32.0-36.5); MEAN CORPUSCULAR VOLUME 91.4 fl (80.0-96.0); PLATELET COUNT, AUTOMATED 211 10^3/uL (150-450); RED BLOOD COUNT 4.17 10^6/uL (4.30-6.10); WHITE BLOOD COUNT 5.4 10^3/uL (4.0-10.0)
[2019-10-18 07:21] LABS: BLOOD UREA NITROGEN 26 MG/DL (7-18); CREATININE FOR GFR 0.91 MG/DL (0.70-1.30); GLUCOSE, FASTING 127 MG/DL (70-100)
[2019-10-18 07:22] LABS: ALBUMIN 3.7 GM/DL (3.2-5.2); ALT/SGPT 30 U/L (12-78); BILIRUBIN,TOTAL 0.7 MG/DL (0.2-1.0); CALCIUM LEVEL 8.8 MG/DL (8.8-10.2); CARBON DIOXIDE LEVEL 32 MEQ/L (21-32); CHLORIDE LEVEL 101 MEQ/L (98-107); CHOLESTEROL LEVEL 161 MG/DL (<200); CHOLESTEROL RISK RATIO 3.577 (<5); GLOMERULAR FILTRATION RATE > 60.0 (>35); HDL CHOLESTEROL 45 MG/DL (>40); LDL CHOLESTEROL 95 MG/DL (<100); MAGNESIUM LEVEL 2.2 MG/DL (1.8-2.4); NON-HDL-C 116 MG/DL; POTASSIUM SERUM 4.3 MEQ/L (3.5-5.1); SODIUM LEVEL 139 MEQ/L (136-145); TOTAL PROTEIN 7.8 GM/DL (6.4-8.2); TRIGLYCERIDES LEVEL 107 MG/DL (<150)
== END ==
LOC: M LAB 06:14
PROVIDERS: ATTEND Internal Medicine
DX: I10 Essential (primary) hypertension (principal); E78.00 Pure hypercholesterolemia, unspecified; D69.6 Thrombocytopenia, unspecified

== ENCOUNTER → 2019-10-26 | Outpatient (CLI) | payer OTHER, MEDICARE ==
--- NOTE | 2019-10-27 01:48 | REPPI ---
Right hip and thigh pain. Technique: Frontal view of the pelvis with neutral and frog lateral views of the right hip. Findings: No acute fracture dislocation. Age-related degenerative changes are appreciated including enthesopathy along the pelvic rim. The right hip joint demonstrates mildly increased sclerosis along the acetabular roof with marginal spurring and minimal joint space narrowing. Impression: Mild age-related arthritic changes. Electronically Signed by Flako Bauman MD 10/27/2019 01:39 A
--- NOTE | 2019-10-27 01:59 | REPPI ---
Clinical: Right lower extremity pain. Technique: AP and frog lateral views of the right femur. Findings: Age-related changes at the hip joint include increased sclerosis to the acetabular roof with marginal spurring and minimal joint space narrowing. Evidence for prior right knee replacement. No acute fracture dislocation. Surrounding soft tissues are unremarkable. Impression: Age-related changes. Electronically Signed by Flako Bauman MD 10/27/2019 01:51 A
== END ==
LOC: M PLAIMG 09:08
PROVIDERS: ATTEND Internal Medicine
DX: M16.11 Unilateral primary osteoarthritis, right hip (principal)

== ENCOUNTER → 2020-04-18 | Outpatient (CLI) | payer OTHER ==
[~2020-04-18] MED LIST changes: +AMLO1TAB24 PO; -AMLO5TAB6 PO; -LISI20TA19 PO; +LISI20TA35 PO
[2020-04-18 06:52] LABS: HEMATOCRIT 45.3 % (42.0-52.0); HEMOGLOBIN 14.3 g/dl (13.5-17.5); MEAN CORPUSCULAR HEMOGLOBIN 29.1 pg (27.0-33.0); MEAN CORPUSCULAR HGB CONC 31.6 g/dl (32.0-36.5); MEAN CORPUSCULAR VOLUME 92.1 fl (80.0-96.0); PLATELET COUNT, AUTOMATED 149 10^3/uL (150-450); RED BLOOD COUNT 4.92 10^6/uL (4.30-6.10)
[2020-04-18 07:13] LABS: HEMOGLOBIN A1c 5.6 %
[2020-04-18 07:16] LABS: ALBUMIN 3.8 GM/DL (3.2-5.2); ALT/SGPT 23 U/L (12-78); BILIRUBIN,TOTAL 0.9 MG/DL (0.2-1.0); BLOOD UREA NITROGEN 19 MG/DL (7-18); CALCIUM LEVEL 9.3 MG/DL (8.8-10.2); CARBON DIOXIDE LEVEL 33 MEQ/L (21-32); CHLORIDE LEVEL 100 MEQ/L (98-107); CREATININE FOR GFR 0.93 MG/DL (0.70-1.30); GLOMERULAR FILTRATION RATE > 60.0 (>35); GLUCOSE, FASTING 106 MG/DL (70-100); MAGNESIUM LEVEL 2.1 MG/DL (1.8-2.4); POTASSIUM SERUM 4.5 MEQ/L (3.5-5.1); SODIUM LEVEL 137 MEQ/L (136-145); TOTAL PROTEIN 7.6 GM/DL (6.4-8.2)
[2020-04-18 07:26] LABS: MALB URINE SIEMENS 54.3 MG/L; MAU/CREAT RATIO 38.7 MCG/MG (0.0-30.0)
== END ==
LOC: M LAB 06:04
PROVIDERS: ATTEND Internal Medicine
DX: D69.6 Thrombocytopenia, unspecified (principal); I10 Essential (primary) hypertension; Z86.39 Personal history of other endocrine, nutritional and metabolic disease

== ENCOUNTER → 2020-10-18 | Outpatient (CLI) | payer OTHER ==
[2020-10-18 07:39] LABS: ALBUMIN 3.8 GM/DL (3.2-5.2); ALT/SGPT 24 U/L (12-78); BILIRUBIN,TOTAL 0.6 MG/DL (0.2-1.0); BLOOD UREA NITROGEN 26 MG/DL (7-18); CARBON DIOXIDE LEVEL 32 MEQ/L (21-32); CHLORIDE LEVEL 104 MEQ/L (98-107); CHOLESTEROL LEVEL 142 MG/DL (<200); CHOLESTEROL RISK RATIO 3.155 (<5); CREATININE FOR GFR 0.89 MG/DL (0.70-1.30); GLOMERULAR FILTRATION RATE > 60.0 (>35); GLUCOSE, FASTING 116 MG/DL (70-100); HDL CHOLESTEROL 45 MG/DL (>40); LDL CHOLESTEROL 75 MG/DL (<100); NON-HDL-C 97 MG/DL; POTASSIUM SERUM 4.5 MEQ/L (3.5-5.1); SODIUM LEVEL 140 MEQ/L (136-145); TOTAL PROTEIN 7.4 GM/DL (6.4-8.2); TRIGLYCERIDES LEVEL 108 MG/DL (<150)
[2020-10-18 07:55] LABS: MALB URINE SIEMENS 44.1 MG/L; MAU/CREAT RATIO 21.6 MCG/MG (0.0-30.0)
== END ==
LOC: M LAB 06:39
PROVIDERS: ATTEND Internal Medicine
DX: Z12.5 Encounter for screening for malignant neoplasm of prostate (principal); I10 Essential (primary) hypertension; E78.00 Pure hypercholesterolemia, unspecified
CPT/HCPCS: 36415; 80053; 80061; 82043; G0103

== ENCOUNTER → 2021-04-17 | Outpatient (CLI) | payer OTHER ==
[2021-04-17 08:13] LABS: BASO % 0.7 % (0.0-1.0); EOS # 0.2 10^3/uL (0.0-0.5); HEMOGLOBIN 13.7 g/dl (13.5-17.5); LYMPH # 1.5 10^3/uL (1.5-5.0); LYMPH % 33.6 % (24.0-44.0); MEAN CORPUSCULAR HEMOGLOBIN 29.8 pg (27.0-33.0); MEAN CORPUSCULAR HGB CONC 32.6 g/dl (32.0-36.5); MEAN CORPUSCULAR VOLUME 91.3 fl (80.0-96.0); MONO # 0.4 10^3/uL (0.0-0.8); MONO % 8.5 % (2.0-8.0); NEUTROPHILS # 2.4 10^3/uL (1.5-8.5); PLATELET COUNT, AUTOMATED 157 10^3/uL (150-450); WHITE BLOOD COUNT 4.5 10^3/uL (4.0-10.0)
[2021-04-17 08:40] LABS: HEMOGLOBIN A1c 5.5 %
[2021-04-17 08:41] LABS: ALBUMIN 3.5 GM/DL (3.2-5.2); ALT/SGPT 25 U/L (12-78); BILIRUBIN,TOTAL 0.6 MG/DL (0.2-1.0); BLOOD UREA NITROGEN 19 MG/DL (7-18); CALCIUM LEVEL 8.9 MG/DL (8.8-10.2); CARBON DIOXIDE LEVEL 34 MEQ/L (21-32); CHLORIDE LEVEL 103 MEQ/L (98-107); CREATININE FOR GFR 0.88 MG/DL (0.70-1.30); GLOMERULAR FILTRATION RATE > 60.0 (>35); GLUCOSE, FASTING 112 MG/DL (70-100); POTASSIUM SERUM 4.2 MEQ/L (3.5-5.1); SODIUM LEVEL 140 MEQ/L (136-145); TOTAL PROTEIN 7.2 GM/DL (6.4-8.2)
[2021-04-17 10:04] LABS: HEPATITIS C VIRUS ABY INDEX < 0.0 INDEX (<0.8)
== END ==
LOC: M LAB 07:11
PROVIDERS: ATTEND Internal Medicine
DX: Z11.59 Encounter for screening for other viral diseases (principal); I10 Essential (primary) hypertension; D69.6 Thrombocytopenia, unspecified; Z86.39 Personal history of other endocrine, nutritional and metabolic disease

== ENCOUNTER → 2021-08-14 | Outpatient (CLI) | payer OTHER, MEDICARE | LOC: M PLAIMG 13:29 | PROVIDERS: ATTEND Internal Medicine | DX: M19.042 Primary osteoarthritis, left hand (principal); R22.32 Localized swelling, mass and lump, left upper limb ==

== ENCOUNTER → 2021-10-15 | Outpatient (CLI) | payer OTHER, MEDICARE ==
[2021-10-15 08:11] LABS: BASO % 0.4 % (0.0-1.0); EOS # 0.1 10^3/uL (0.0-0.5); EOS % 1.7 % (0.0-3.0); HEMATOCRIT 41.3 % (42.0-52.0); HEMOGLOBIN 13.4 g/dl (13.5-17.5); LYMPH # 1.7 10^3/uL (1.5-5.0); LYMPH % 36.2 % (24.0-44.0); MEAN CORPUSCULAR HEMOGLOBIN 29.1 pg (27.0-33.0); MEAN CORPUSCULAR HGB CONC 32.4 g/dl (32.0-36.5); MEAN CORPUSCULAR VOLUME 89.6 fl (80.0-96.0); MONO # 0.5 10^3/uL (0.0-0.8); MONO % 11.2 % (2.0-8.0); NEUTROPHILS # 2.3 10^3/uL (1.5-8.5); NEUTROPHILS % 50.3 % (36.0-66.0); PLATELET COUNT, AUTOMATED 151 10^3/uL (150-450); RED BLOOD COUNT 4.61 10^6/uL (4.30-6.10); WHITE BLOOD COUNT 4.6 10^3/uL (4.0-10.0)
[2021-10-15 08:34] LABS: ALBUMIN 3.7 GM/DL (3.2-5.2); ALT/SGPT 24 U/L (12-78); BILIRUBIN,TOTAL 0.7 MG/DL (0.2-1.0); BLOOD UREA NITROGEN 22 MG/DL (7-18); CALCIUM LEVEL 9.4 MG/DL (8.8-10.2); CARBON DIOXIDE LEVEL 32 MEQ/L (21-32); CHLORIDE LEVEL 105 MEQ/L (98-107); CHOLESTEROL LEVEL 144 MG/DL (<200); CHOLESTEROL RISK RATIO 3.512 (<5); CREATININE FOR GFR 0.78 MG/DL (0.70-1.30); GLOMERULAR FILTRATION RATE > 60.0 (>35); GLUCOSE, FASTING 102 MG/DL (70-100); HDL CHOLESTEROL 41 MG/DL (>40); LDL CHOLESTEROL 76 MG/DL (<100); MAGNESIUM LEVEL 2.2 MG/DL (1.8-2.4); NON-HDL-C 103 MG/DL; POTASSIUM SERUM 4.3 MEQ/L (3.5-5.1); SODIUM LEVEL 142 MEQ/L (136-145); TOTAL PROTEIN 7.1 GM/DL (6.4-8.2); TRIGLYCERIDES LEVEL 137 MG/DL (<150)
[2021-10-15 08:35] LABS: HEMOGLOBIN A1c 5.6 %
== END ==
LOC: M LAB 06:51
PROVIDERS: ATTEND Internal Medicine
DX: E78.00 Pure hypercholesterolemia, unspecified (principal); I10 Essential (primary) hypertension; D69.6 Thrombocytopenia, unspecified; Z86.39 Personal history of other endocrine, nutritional and metabolic disease

== ENCOUNTER → 2022-10-02 | Outpatient (REF) | payer OTHER, MEDICARE ==
[2022-10-02 18:48] LABS: PERCENT SATURATION 11.1 % (19.7-50.0)
[2022-10-02 18:49] LABS: FERRITIN 14.7 NG/ML (10.5-307.3)
== END ==
LOC: M LAB REF 16:27
PROVIDERS: ATTEND Internal Medicine
DX: D69.6 Thrombocytopenia, unspecified (principal)

== ENCOUNTER → 2022-10-31 | Outpatient (CLI) | payer OTHER, MEDICARE | LOC: M WUC 14:40 | PROVIDERS: ATTEND Nurse Practitioner Family | DX: M19.042 Primary osteoarthritis, left hand (principal) ==

== ENCOUNTER → 2023-06-26 | Outpatient (REF) | payer OTHER, MEDICARE ==
[2023-06-26 13:16] LABS: PERCENT SATURATION 26.9 % (19.7-50.0)
== END ==
LOC: M LAB REF 12:39
PROVIDERS: ATTEND Internal Medicine
DX: D50.9 Iron deficiency anemia, unspecified (principal)

== ENCOUNTER → 2024-06-23 | Outpatient (REF) | payer OTHER ==
[~2024-06-23] MED LIST changes: -ASPI-161 PO; +ASPI-615 PO
[2024-06-23 14:18] LABS: PERCENT SATURATION 22.8 % (19.7-50.0)
[2024-06-23 14:22] LABS: FERRITIN 18.3 NG/ML (10.5-307.3)
== END ==
LOC: M LAB REF 12:01
PROVIDERS: ATTEND Internal Medicine
DX: D50.9 Iron deficiency anemia, unspecified (principal)

== ENCOUNTER 2024-07-23 09:56 | Emergency (ER) | payer OTHER ==
[2024-07-23] MEDS ORDERED: TAMS1CAP17 (10:08)
[2024-07-23 13:05] VITALS: BP 125/77; TEMP 97.7; O2SAT 98
== END 2024-07-23 13:08 | disposition home or self-care (01) ==
LOC: M ED 09:56 → EDBD 09:56 → M ED 13:08
DX: R04.0 Epistaxis (principal); I10 Essential (primary) hypertension; Z91.09 Other allergy status, other than to drugs and biological substances; Z79.810 Long term (current) use of selective estrogen receptor modulators (SERMs); Z79.899 Other long term (current) drug therapy

== ENCOUNTER → 2025-01-14 | Outpatient (REF) | payer OTHER ==
[~2025-01-14] MED LIST changes: +TAMS1CAP17
[2025-01-14 13:04] LABS: IRON (FE) 124.0 UG/DL (65-175)
[2025-01-14 13:05] LABS: PERCENT SATURATION 35.2 % (19.7-50.0)
== END ==
LOC: M LAB REF 11:58
PROVIDERS: ATTEND Internal Medicine
DX: D50.9 Iron deficiency anemia, unspecified (principal)